=== PATIENT | female | born 1955 | race African-American/Black ===

== ENCOUNTER 2019-02-25 13:20 | Emergency (ER) | payer MEDICAID ==
[~2019-02-25] VITALS: Ht 167.6 cm; Wt 99.8 kg
[~2019-02-25 13:20] MED LIST: ATE50T PO; CALC0.25 PO; CHOL20007 PO; FERR-7 PO; FURO1TAB33 PO; HCTZ25T GT; HYDR-4188 PO; HYDR50TA15 PO; LAMO100T44 PO; LOSA25TA38 PO; MYCO500T PO; NORT25CA PO; ONDA-144 PO; PANT40TA2 PO; PHE100C PO; POTA10TA51 PO; TRAM50TA2 PO
[2019-02-25] MEDS ORDERED: SODIUM CHLORIDE 0.9% 500 ML IV ONE (13:36)
[2019-02-25 14:19] LABS: Urine Bacteria FEW /hpf (None Seen); Urine Blood Negative /uL (Negative); Urine WBC 3 /hpf (0 - 5)
[2019-02-25 14:27] LABS: Eosinophils # (auto) 0 uL; Monocytes # (auto) 0.6 uL
[2019-02-25 14:29] LABS: Basophils # (auto) 0 uL; Basophils % (auto) 0.9 % (0.0-2.0); Eosinophils % (auto) 0.4 % (0.0-7.0); Hemoglobin 11.5 g/dL (12.2-16.2); Lymphocytes # (auto) 1.5 uL; Lymphocytes % (auto) 32.6 % (10.0-50.0); Mean Corpuscular Hemoglobin 26.3 pg (28.0-32.0); Mean Corpuscular Volume 82.2 fL (80.0-100.0); Monocytes % (auto) 13.6 % (0.0-12.0); Neutrophils # (auto) 2.5 uL; Neutrophils % (auto) 52.5 % (37.0-80.0); Nucleated Red Blood Cells % 0.2 %; Platelet Count (auto) 258 10^3/uL (140-450); Red Blood Cells 4.38 10^6/uL (4.0-5.20); Red Cell Distribution Width 16.4 % (11.8-14.3); White Blood Cell 4.7 10^3/uL (4.4-10.8)
[2019-02-25] MEDS ORDERED: methylPREDNISolone SOD SUCC 125 MG/2 ML VL IV ONE (14:30)
[2019-02-25 14:48] LABS: Albumin 2.9 g/dL (3.4-5.0); Calcium 8.2 mg/dL (8.5-10.1); Potassium 3.7 mmol/L (3.5-5.1)
[2019-02-25 14:51] LABS: BUN/Creatinine Ratio 28.3; Bilirubin, Total 0.3 mg/dL (0.2-1.0); Total Protein 7.7 g/dL (6.4-8.2)
[2019-02-25 14:59] LABS: INR 1.11 (0.9-1.15); Partial Thromboplastin Time 27.9 sec (23.64-32.05)
[2019-02-25 19:38] VITALS: BP 132/61
== END 2019-02-25 15:46 | disposition short-term general hospital (02) ==
LOC: EDBD 13:20 → ER 13:20
DX: I13.2 Hypertensive heart and chronic kidney disease with heart failure and with stage 5 chronic kidney disease, or end stage renal disease (principal); N18.6 End stage renal disease; I50.9 Heart failure, unspecified; T42.0X5A Adverse effect of hydantoin derivatives, initial encounter; R41.82 Altered mental status, unspecified; I48.91 Unspecified atrial fibrillation; M19.90 Unspecified osteoarthritis, unspecified site; E89.0 Postprocedural hypothyroidism; Z86.73 Personal history of transient ischemic attack (TIA), and cerebral infarction without residual deficits; Z87.11 Personal history of peptic ulcer disease; Z90.49 Acquired absence of other specified parts of digestive tract; Z79.899 Other long term (current) drug therapy; Z88.6 Allergy status to analgesic agent; Y92.89 Other specified places as the place of occurrence of the external cause
CPT/HCPCS: 36415; 51702; 70450; 74176; 80053; 80185; 81001; 85025; 85610; 85730; 93005; 94761; 96361; 96374; 99291; J2930

== ENCOUNTER 2019-10-17 10:30 | Inpatient (IN) | payer MEDICAID, SELFPAY ==
[~2019-10-17] VITALS: Ht 170.2 cm; Wt 99.0 kg
[2019-10-17] MEDS ORDERED: SODIUM CHLORIDE 0.9% 1,000 ML IV ONE (10:52)
[2019-10-17 12:28] LABS: Eosinophils # (auto) 0 10 ^3/uL (0-0.8); Monocytes # (auto) 0.6 10 ^3/uL (0-1.3); Nucleated Red Blood Cells % 0.1 %
[2019-10-17 12:30] LABS: Basophils # (auto) 0 10 ^3/uL (0-0.2); Hematocrit 37.7 % (36.0-46.0); Lymphocytes # (auto) 0.6 10 ^3/uL (0.4-5.4); Lymphocytes % (auto) 4.7 % (10.0-50.0); Mean Corpuscular Hemoglobin 25.4 pg (28.0-32.0); Mean Corpuscular Hgb Conc. 31.7 g/dL (32.0-36.0); Monocytes % (auto) 4.9 % (0.0-12.0); Neutrophils # (auto) 11.3 10 ^3/uL (1.6-8.6); Neutrophils % (auto) 90.4 % (37.0-80.0); Red Blood Cells 4.71 10^6/uL (4.0-5.20); Red Cell Distribution Width 17.4 % (11.8-14.3); White Blood Cell 12.5 10^3/uL (4.4-10.8)
[2019-10-17 12:40] LABS: Urine Bacteria FEW /hpf (None Seen); Urine Blood 1+ /uL (Negative); Urine Budding Yeast OCCASIONAL /hpf (None Seen); Urine Specific Gravity 1.009 (1.001-1.035); Urine WBC 1 /hpf (0 - 5)
[2019-10-17 13:24] LABS: Platelet Count (auto) 140 10^3/uL (140-450)
[2019-10-17 14:34] LABS: Albumin 3.1 g/dL (3.4-5.0); Calcium 8.8 mg/dL (8.5-10.1); Potassium 4.5 mmol/L (3.5-5.1)
[2019-10-17 14:38] LABS: BUN/Creatinine Ratio 16.8; Bilirubin, Total 0.3 mg/dL (0.2-1.0); Total Protein 8.5 g/dL (6.4-8.2)
[2019-10-17] MEDS ORDERED: FUROSEMIDE 40 MG/4 ML VIAL IV ONE (14:45)
[2019-10-17] MEDS ORDERED: cefTRIAXone 1GM/50ML D5W 50 ML IV ONE (14:45)
[2019-10-17] MEDS ORDERED: AZITHROMYCIN 500MG/ 250ML 250 ML IV ONE (14:45)
[2019-10-17] MEDS ORDERED: ZINC SULFATE 220mg CAP or TAB PO ONE (15:15)
[2019-10-17] MEDS ORDERED: CHOLECALCIFEROL (VITD3) 1,000IU=25mCg TAB PO ONE (15:15)
[2019-10-17] MEDS ORDERED: ASCORBIC ACID 500 MG TAB PO ONE (15:15)
[2019-10-17] MEDS ORDERED: NITROGLYCERIN 0.4 MG SL TAB SL PRN (16:00)
[2019-10-17] MEDS ORDERED: MORPHINE SULF INJ 2 MG/ML SYRINGE 1ML IV PRN (16:00)
[2019-10-17] MEDS ORDERED: ACETAMINOPHEN 500 MG TAB PO PRN (16:00)
[2019-10-17] MEDS ORDERED: HYDROcodone-ACET 5/325MG TAB PO PRN (16:00)
[2019-10-17] MEDS ORDERED: LORazepam 2MG/ML-1ML VIAL IV PRN ×2 (16:15→21:00)
[2019-10-17] MEDS ORDERED: METOPROLOL TARTRATE 1MG/1ML-5ML VIAL IV ONE (16:15)
[2019-10-17 16:27] LABS: CRP High Sensitivity 0.35 mg/dL (< 0.3); Magnesium 3.2 mg/dL (1.6-2.6)
[2019-10-17] MEDS: BUMETANIDE 2.5mg/10ml (0.25 mg/ml) INJ IV SCH (17:54)
[2019-10-17] MEDS: MORPHINE SULF INJ 2 MG/ML SYRINGE 1ML IV PRN ×2 (17:54→22:26)
[2019-10-17] MEDS ORDERED: lamoTRIgine 100 MG TAB PO SCH ×2 (21:00→22:00)
[2019-10-17] MEDS: ONDANSETRON HCL 4 MG/2 ML VIAL IV PRN (22:25)
[2019-10-17] MEDS: PIPERACILLIN-TAZOB 2.25GM 50 ML IV SCH (22:25)
[2019-10-17] MEDS: hydrALAZINE HCL 25 MG TAB PO SCH (22:27)
[2019-10-17] MEDS: lamoTRIgine 100 MG TAB PO SCH (22:27)
[2019-10-17] MEDS: ALBUTEROL SULF HFA 90MCG INH 200DOSE IN SCH (22:45)
[2019-10-18 01:44] VITALS: BP 151/99
[2019-10-18] MEDS: MORPHINE SULF INJ 2 MG/ML SYRINGE 1ML IV PRN ×3 (03:51→16:55)
[2019-10-18] MEDS: BUMETANIDE 2.5mg/10ml (0.25 mg/ml) INJ IV SCH ×2 (06:11→18:00)
[2019-10-18 06:23] LABS: Eosinophils # (auto) 0.1 10 ^3/uL (0-0.8); Mean Corpuscular Volume 79.1 fL (80.0-100.0); Monocytes # (auto) 0.8 10 ^3/uL (0-1.3); Nucleated Red Blood Cells % 0.1 %
[2019-10-18 06:25] LABS: Basophils # (auto) 0 10 ^3/uL (0-0.2); Basophils % (auto) 0.3 % (0.0-2.0); Eosinophils % (auto) 1.2 % (0.0-7.0); Hematocrit 34.6 % (36.0-46.0); Lymphocytes # (auto) 0.7 10 ^3/uL (0.4-5.4); Lymphocytes % (auto) 6.5 % (10.0-50.0); Mean Corpuscular Hemoglobin 25.1 pg (28.0-32.0); Mean Corpuscular Hgb Conc. 31.8 g/dL (32.0-36.0); Monocytes % (auto) 7.5 % (0.0-12.0); Neutrophils # (auto) 8.5 10 ^3/uL (1.6-8.6); Neutrophils % (auto) 84.5 % (37.0-80.0); Platelet Count (auto) 185 10^3/uL (140-450); Red Blood Cells 4.37 10^6/uL (4.0-5.20); Red Cell Distribution Width 17.1 % (11.8-14.3); White Blood Cell 10.1 10^3/uL (4.4-10.8)
[2019-10-18 06:36] LABS: Albumin 2.8 g/dL (3.4-5.0); Calcium 8.4 mg/dL (8.5-10.1); Potassium 4.1 mmol/L (3.5-5.1)
[2019-10-18 06:41] LABS: BUN/Creatinine Ratio 16.8; Bilirubin, Total 0.6 mg/dL (0.2-1.0); Total Protein 7.6 g/dL (6.4-8.2)
[2019-10-18] MEDS: ALBUTEROL SULF HFA 90MCG INH 200DOSE IN SCH ×3 (08:00→20:25)
[2019-10-18] MEDS: lamoTRIgine 100 MG TAB PO SCH ×2 (09:15→21:15)
[2019-10-18] MEDS: PIPERACILLIN-TAZOB 2.25GM 50 ML IV SCH ×2 (10:00→21:46)
[2019-10-18] MEDS: CHOLECALCIFEROL (VITD3) 1,000IU=25mCg TAB PO SCH (10:00)
[2019-10-18] MEDS: ENOXAPARIN SOD 30 MG/0.3 ML SYRINGE SC SCH (10:00)
[2019-10-18] MEDS ORDERED: AZITHROMYCIN 500MG/ 250ML 250 ML IV SCH ×2 (10:00)
[2019-10-18] MEDS ORDERED: AZITHROMYCIN DIHYD 500 MG VIAL IV SCH (10:00)
[2019-10-18] MEDS: ZINC SULFATE 220mg CAP or TAB PO SCH (10:00)
[2019-10-18] MEDS: ASCORBIC ACID 500 MG TAB PO SCH (10:00)
[2019-10-18] MEDS: FAMOTIDINE 20 MG TAB PO SCH (10:00)
[2019-10-18] MEDS: hydrALAZINE HCL 25 MG TAB PO SCH ×2 (10:00→21:46)
[2019-10-18] MEDS: ATENOLOL 50 MG TAB PO SCH (10:00)
[2019-10-18] MEDS: ONDANSETRON HCL 4 MG/2 ML VIAL IV PRN ×2 (10:24→16:55)
--- NOTE | 2019-10-18 10:45 | NUR ---
1040 10/18/19 I faxed transfer order and Notice Regarding Post Stabilization to [facility]-document scanned into [employer]. I provided contact information for Dr. Jack.
--- NOTE | 2019-10-18 14:01 | NUR ---
1350 10/18/19 I called [facility] [phone] and spoke with Assembly Machine Tool Setter Reba regarding the transfer order for this patient. I spoke with [facility] in Infection Control, the COVID-19 test result is still pending. Per Assembly Machine Tool Setter Reba, they will not accept patient for transfer until result is back. Per Reba, inpatient authorization is extended until 10/19/19 1000-she will have it faxed over.
[2019-10-18 19:05] VITALS: BP 149/91
--- NOTE | 2019-10-18 19:05 | NUR ---
PT ARRIVED FROM ER PT BROUGHT TO COMPA UNIT ON STRETCHER WITH 8 L OXYMIZER APPLIED AND BELONGINGS IN TOW. PLACED PT IN ISOLATION ROOM FOR RULE OUT COVID. VITAL SIGNS STABLE. 02 SAT NOT READING CORRECTLY, WILL FOLLOW UP WITH RT. BEGAN ADMISSION ASSESSMENT AND PACKET PER PROTOCOL.
[2019-10-18 20:00] VITALS: BP 146/83
--- NOTE | 2019-10-18 20:45 | NUR ---
RT AT BEDSIDE TO TROUBLE SHOOT PULSE OX. WAVEFORM LOOKS APPROPRIATE, HOWEVER NUMBERS HAVE BEEN RUNNING IN THE LOW 80'S. PT IS ASYMPTOMATIC OF RESPIRATORY DISTRESS RT RESOLVED EQUIPMENT MALFUNCTION. PT REMAINS ON 8L OXYMIZER WITH NO S/S OF DISTRESS NOTED.
[2019-10-18 21:00] VITALS: BP 154/77
--- NOTE | 2019-10-18 21:18 | NUR ---
MORPHINE ADMIN GAVE MORPHINE PER MD ORDER FOR PAIN 8/ CHRONIC IN RIGHT SHOULDER THAT RADIATES TO BACK. DOCUMENTATION WASN'T SAVED IN EMAR. WILL REASSESS PAIN.
[2019-10-18 22:00] VITALS: BP 142/75
[2019-10-18 23:00] VITALS: BP 139/71
[2019-10-18] MEDS ORDERED: BIOT10004 PO (23:47)
[2019-10-18] MEDS ORDERED: AMLO5TAB15 PO (23:47)
[2019-10-18] MEDS ORDERED: ROPI0.5T18 PO (23:47)
[2019-10-18] MEDS ORDERED: SODI650T PO (23:47)
[2019-10-18] MEDS ORDERED: BACL10TA PO (23:47)
[2019-10-18] MEDS ORDERED: HYDR200T36 PO (23:47)
[2019-10-18] MEDS ORDERED: DOCU100T15 PO (23:47)
[2019-10-19] VITALS (11 sets, daily range): BP systolic 109–152; BP diastolic 50–85
--- NOTE | 2019-10-19 00:15 | NUR ---
PAIN REASSESSMENT CHRONIC PAIN STILL 8/10 IN RIGHT SHOULDER. DID A POSITION CHANGE AND OFFLOADED PRESSURE WITH PILLOWS. PT REQUESTING MORPHINE. WILL ADMIN WHEN DUE.
--- NOTE | 2019-10-19 00:45 | NUR ---
PT TEMPERATURE TEMP READING AT 101.5 ORALLY. REMOVED BLANKETS AND PLACED FAN ON PT. WILL REASSESS.
--- NOTE | 2019-10-19 01:30 | NUR ---
TEMP REASSESSMENT PT TEMP ELEVATED AT 100.8 ORALLY. TYLENOL GIVEN PER MD ORDER. WILL CONTINUE TO MONITOR.
[2019-10-19] MEDS: MORPHINE SULF INJ 2 MG/ML SYRINGE 1ML IV PRN ×5 (01:45→21:13)
[2019-10-19] MEDS: ALBUTEROL SULF HFA 90MCG INH 200DOSE IN SCH ×3 (06:10→21:38)
--- NOTE | 2019-10-19 06:10 | NUR ---
Respiratory note: BREATHING TX ADMINISTERED BY NOC SHIFT STU DANG. WILL RETURN FOR NEXT SCHEDULED TX.
[2019-10-19] MEDS: BUMETANIDE 2.5mg/10ml (0.25 mg/ml) INJ IV SCH ×3 (06:15→18:46)
[2019-10-19 07:04] LABS: Eosinophils # (auto) 0.3 10 ^3/uL (0-0.8); Lymphocytes # (auto) 0.9 10 ^3/uL (0.4-5.4); White Blood Cell 10.6 10^3/uL (4.4-10.8)
--- NOTE | 2019-10-19 07:05 | NUR ---
COVID RESULTS BOARDER MACHINE CALLED TO UPDATE ON COVID RESULTS. PT IS NEGATIVE.
[2019-10-19 07:06] LABS: Basophils # (auto) 0 10 ^3/uL (0-0.2); Basophils % (auto) 0.3 % (0.0-2.0); Eosinophils % (auto) 2.4 % (0.0-7.0); Lymphocytes % (auto) 8.4 % (10.0-50.0); Mean Corpuscular Hemoglobin 25.6 pg (28.0-32.0); Mean Corpuscular Hgb Conc. 32.3 g/dL (32.0-36.0); Mean Corpuscular Volume 79.2 fL (80.0-100.0); Monocytes # (auto) 1.1 10 ^3/uL (0-1.3); Monocytes % (auto) 10.2 % (0.0-12.0); Neutrophils # (auto) 8.4 10 ^3/uL (1.6-8.6); Neutrophils % (auto) 78.7 % (37.0-80.0); Platelet Count (auto) 160 10^3/uL (140-450); Red Blood Cells 3.91 10^6/uL (4.0-5.20); Red Cell Distribution Width 16.6 % (11.8-14.3)
[2019-10-19 07:23] LABS: Calcium 8.5 mg/dL (8.5-10.1)
[2019-10-19] MEDS: CHOLECALCIFEROL (VITD3) 1,000IU=25mCg TAB PO SCH (10:00)
[2019-10-19] MEDS: ZINC SULFATE 220mg CAP or TAB PO SCH ×2 (10:00→11:36)
[2019-10-19] MEDS: PIPERACILLIN-TAZOB 2.25GM 50 ML IV SCH ×3 (10:28→21:12)
[2019-10-19] MEDS: FAMOTIDINE 20 MG TAB PO SCH (10:29)
[2019-10-19] MEDS ORDERED: AZITHROMYCIN 250 MG TAB PO ONE (10:30)
[2019-10-19] MEDS: hydrALAZINE HCL 25 MG TAB PO SCH ×2 (10:31→21:11)
[2019-10-19] MEDS: ASCORBIC ACID 500 MG TAB PO SCH (10:32)
[2019-10-19] MEDS: ENOXAPARIN SOD 30 MG/0.3 ML SYRINGE SC SCH (10:32)
[2019-10-19] MEDS: ATENOLOL 50 MG TAB PO SCH (10:55)
[2019-10-19] MEDS: lamoTRIgine 100 MG TAB PO SCH ×2 (10:56→21:12)
--- NOTE | 2019-10-19 12:00 | NUR ---
PT ARRIVED FROM COMPA VIA A WHEELCHAIR, ALERT ORIENTED X4, OXYMIZER 8L, NO DISTRESS NOTED, ABLE TO VERBALIS HER NEEDS, SELF REPOSITION, TO ROOM 222A, PAIN 0/10, CALL LIGHT WITHIN REACH
--- NOTE | 2019-10-19 13:25 | NUR ---
TRANSFER PT TO ROOM 207, PER DR GARCIA REQUEST , CHARGE NURSE AWARE
--- NOTE | 2019-10-19 14:06 | NUR ---
COMPA pt transferred to floor NEETA KWONG transferred to Telemetry via bed on patient monitor and portable 02. All patient medications and personal belongings transferred with patient to receiving floor. Patient care transferred to room 233. Patient show no signs of distress or sob. POC explained and patient verbalized understanding. Will cont to monitor.
--- NOTE | 2019-10-19 14:07 | NUR ---
TRANSFER PT TO ROOM 233, DUE TO CHEST CT RESULTS, PER DR GARCIA PT NEED TO BE RE TESTED, REPORT GIVEN TO MARION PERAZA, CONTINUE MONITORING
--- NOTE | 2019-10-19 15:30 | NUR ---
Respiratory note: SPOKE WITH STU SCHULTZ. MDI BREATHING TX TO BE ADMINISTERED BY RN. WILL CONTINUE ORDERED.
--- NOTE | 2019-10-19 16:19 | NUR ---
Nutrition Assessment Notes Please refer to link for full assessment notes. Est energy needs: 3918-3926 kcals (17-20 kcal/kgBW) Est protein needs: 57-71 gms/day (0.8-1.0 gm/kgAdjBW) Will continue to monitor and reassess prn. Addendum: 10/19/19 at [address] Amended: Links added.
--- NOTE | 2019-10-19 19:30 | NUR ---
Endorsed care to night RN. Patient resting in bed, no distress, sob, or pain noted at this time.
--- NOTE | 2019-10-19 20:00 | NUR ---
OPENING SHIFT NOTE: ASSUMED CARE OF PATIENT, A&O X4, AWAKE AND ALERT, NO S/S OF SOB OR DISTRESS, RESPIRATIONS EVEN AND UNLABORED, PATIENT DENIES PAIN. BED IS LOW, LOCKED, TWO SIDE RAILS RAISED, AND CALL DAVE IS WITHIN REACH. INSTRUCTED ON POC AND TO CALL FOR ASSISTANCE, PATIENT VERBALIZED UNDERSTANDING, WILL CONTINUE TO MONITOR Q 1HR AND PRN.
--- NOTE | 2019-10-19 21:38 | NUR ---
Respiratory note: MDI TX ALREADY GIVEN.
[2019-10-20] VITALS (7 sets, daily range): BP systolic 141–159; BP diastolic 75–92
[2019-10-20] MEDS: PIPERACILLIN-TAZOB 2.25GM 50 ML IV SCH ×2 (04:16→09:03)
[2019-10-20] MEDS: BUMETANIDE 2.5mg/10ml (0.25 mg/ml) INJ IV SCH ×2 (04:50→18:43)
[2019-10-20] MEDS: MORPHINE SULF INJ 2 MG/ML SYRINGE 1ML IV PRN ×4 (05:27→20:08)
[2019-10-20] MEDS: ALBUTEROL SULF HFA 90MCG INH 200DOSE IN SCH ×3 (06:00→21:46)
--- NOTE | 2019-10-20 07:33 | NUR ---
MDI ADMINISTERED BY RN. PT ASSESSED AND IS ON 2LNC, SPO2 99%, HR 79, RR 18. PT DENIES SOB. RESPIRATIONS ARE EVEN AND UNLABORED.
[2019-10-20] MEDS: CHOLECALCIFEROL (VITD3) 1,000IU=25mCg TAB PO SCH (09:04)
[2019-10-20] MEDS: ASCORBIC ACID 500 MG TAB PO SCH (09:04)
[2019-10-20] MEDS: ZINC SULFATE 220mg CAP or TAB PO SCH (09:05)
[2019-10-20] MEDS: FAMOTIDINE 20 MG TAB PO SCH (09:05)
[2019-10-20] MEDS: lamoTRIgine 100 MG TAB PO SCH ×2 (09:05→21:06)
[2019-10-20] MEDS: AZITHROMYCIN 250 MG TAB PO SCH (09:06)
[2019-10-20] MEDS: ENOXAPARIN SOD 30 MG/0.3 ML SYRINGE SC SCH (09:06)
[2019-10-20 09:50] LABS: Basophils # (auto) 0 10 ^3/uL (0-0.2); Eosinophils # (auto) 0.3 10 ^3/uL (0-0.8); Hemoglobin 10.6 g/dL (12.2-16.2); Lymphocytes # (auto) 0.5 10 ^3/uL (0.4-5.4); Mean Corpuscular Volume 78.4 fL (80.0-100.0); Monocytes # (auto) 0.7 10 ^3/uL (0-1.3); Neutrophils # (auto) 6.9 10 ^3/uL (1.6-8.6); Neutrophils % (auto) 82.2 % (37.0-80.0); Red Cell Distribution Width 16.7 % (11.8-14.3); White Blood Cell 8.4 10^3/uL (4.4-10.8)
[2019-10-20 09:52] LABS: Basophils % (auto) 0.5 % (0.0-2.0); Eosinophils % (auto) 3.7 % (0.0-7.0); Hematocrit 32.6 % (36.0-46.0); Lymphocytes % (auto) 5.6 % (10.0-50.0); Mean Corpuscular Hemoglobin 25.4 pg (28.0-32.0); Mean Corpuscular Hgb Conc. 32.5 g/dL (32.0-36.0); Platelet Count (auto) 173 10^3/uL (140-450); Red Blood Cells 4.17 10^6/uL (4.0-5.20)
[2019-10-20 10:14] LABS: Albumin 2.8 g/dL (3.4-5.0); Calcium 8.5 mg/dL (8.5-10.1)
[2019-10-20] MEDS: ATENOLOL 50 MG TAB PO SCH (10:19)
[2019-10-20] MEDS: hydrALAZINE HCL 25 MG TAB PO SCH ×2 (10:19→21:46)
[2019-10-20 10:22] LABS: BUN/Creatinine Ratio 16.9; Bilirubin, Total 0.7 mg/dL (0.2-1.0); Total Protein 7.8 g/dL (6.4-8.2)
--- NOTE | 2019-10-20 14:42 | NUR ---
PAGED MD Ashwin GARCIA RE: PT COMPLAINTS OF DIARRHEA. PER PT IS TO BE RULED OUT FOR C-DIFF
[2019-10-20] MEDS ORDERED: cefTRIAXone 1GM/50ML D5W 50 ML IV ONE (16:00)
--- NOTE | 2019-10-20 19:10 | NUR ---
OPENING SHIFT NOTE: ASSUMED CARE OF PATIENT, AWAKE, ALERT AND ORIENTED X4, NO S/S OF DISTRESS, SOB, RESPIRATIONS ARE EVEN AND UNLABORED, PATIENT CONNECTED TO CONTINUOUS PULSE OXIMETER AND SATURATING AT 94% ON ROOM AIR. COMPLAINS OF LEFT SHOULDER PAIN 02/19, WILL MEDICATE FOR PAIN PRN. BED IS LOW, LOCKED, TWO SIDE RAILS RAISED, AND CALL DAVE IS WITHIN REACH. INSTRUCTED ON POC AND TO CALL FOR ASSISTANCE, ALSO EDUCATED PATIENT ON IMPORTANCE OF MEASURING URINE OUTPUT AND COLLECTING STOOL SAMPLE, PATIENT VERBALIZED UNDERSTANDING. WILL CONTINUE TO MONITOR Q 1HR AND PRN.
--- NOTE | 2019-10-20 21:46 | NUR ---
RT NOTE MDI GIVEN BY STU LUNDY WITHOUT INCIDENT. RT MADE SURE RN WAS FAMILIAR WITH THE PROPER ADMINISTRATION OF MDI.
--- NOTE | 2019-10-21 00:03 | NUR ---
STOOL SAMPLE SENT TO LAB.
[2019-10-21] MEDS: MORPHINE SULF INJ 2 MG/ML SYRINGE 1ML IV PRN ×3 (00:37→17:17)
[2019-10-21 05:30] VITALS: BP 151/89
[2019-10-21] MEDS: ALBUTEROL SULF HFA 90MCG INH 200DOSE IN SCH ×3 (06:00→22:06)
[2019-10-21] MEDS: BUMETANIDE 2.5mg/10ml (0.25 mg/ml) INJ IV SCH ×2 (06:16→17:16)
[2019-10-21 06:55] LABS: Potassium 3.3 mmol/L (3.5-5.1)
[2019-10-21 07:00] LABS: Calcium 8.4 mg/dL (8.5-10.1)
[2019-10-21 08:00] VITALS: BP 136/69
[2019-10-21] MEDS: lamoTRIgine 100 MG TAB PO SCH ×2 (10:18→22:05)
[2019-10-21] MEDS: cefTRIAXone 1GM/50ML D5W 50 ML IV SCH (10:18)
[2019-10-21] MEDS: FAMOTIDINE 20 MG TAB PO SCH (10:18)
[2019-10-21] MEDS: ZINC SULFATE 220mg CAP or TAB PO SCH (10:18)
[2019-10-21] MEDS: AZITHROMYCIN 250 MG TAB PO SCH (10:19)
[2019-10-21] MEDS: ASCORBIC ACID 500 MG TAB PO SCH (10:19)
[2019-10-21] MEDS: CHOLECALCIFEROL (VITD3) 1,000IU=25mCg TAB PO SCH (10:19)
[2019-10-21] MEDS: ATENOLOL 50 MG TAB PO SCH (10:19)
[2019-10-21] MEDS: ENOXAPARIN SOD 30 MG/0.3 ML SYRINGE SC SCH (10:20)
[2019-10-21] MEDS: hydrALAZINE HCL 25 MG TAB PO SCH ×2 (10:20→22:06)
[2019-10-21 12:00] VITALS: BP 139/78
--- NOTE | 2019-10-21 12:45 | NUR ---
MD ROUNDING MD Ashwin GARCIA AT BEDSIDE. ALL QUESTIONS AND CONCERNS ADDRESSED AT THIS TIME
[2019-10-21] MEDS ORDERED: POTASSIUM CHL 20 Meq TABLET PO ONE (16:00)
--- NOTE | 2019-10-21 16:12 | NUR ---
1400 MED NEB ADMINISTERED BY RN
[2019-10-21 16:30] VITALS: BP 141/89
--- NOTE | 2019-10-21 19:10 | NUR ---
Opening Shift Note Assumed care of patient, awake, alert and oriented x4, on room air, even and unlabored respirations, no S/S of distress/SOB or pain. Patient able to turn independently, bed in lowest locked position, side rails up x2, and call light within reach. Instructed on POC and to call for assist PRN, will continue to monitor for changes Q1hr and PRN.
[2019-10-21 22:00] VITALS: BP 149/76
[2019-10-22] MEDS: MORPHINE SULF INJ 2 MG/ML SYRINGE 1ML IV PRN ×2 (04:44→10:57)
[2019-10-22] MEDS: ONDANSETRON HCL 4 MG/2 ML VIAL IV PRN (04:45)
[2019-10-22] MEDS: ALBUTEROL SULF HFA 90MCG INH 200DOSE IN SCH ×2 (06:00→06:58)
[2019-10-22 06:21] LABS: Potassium 3.6 mmol/L (3.5-5.1)
[2019-10-22 06:44] LABS: Albumin 2.8 g/dL (3.4-5.0); BUN/Creatinine Ratio 16.1; Bilirubin, Total 0.6 mg/dL (0.2-1.0); Calcium 8.3 mg/dL (8.5-10.1); Phosphorus 3.3 mg/dL (2.5-4.90); Total Protein 7.6 g/dL (6.4-8.2)
[2019-10-22] MEDS: BUMETANIDE 2.5mg/10ml (0.25 mg/ml) INJ IV SCH (06:55)
--- NOTE | 2019-10-22 06:58 | NUR ---
Respiratory note: HR 73, RR 14, SPO2 98% ON RA. BS CLEAR AND DIMINISHED.ALBUTEROL INHALER ADMINISTERED BY RT. NO SIGNS OR SYMPTOMS OF RESPIRATORY DISTRESS NOTED AT THIS TIME.
--- NOTE | 2019-10-22 08:30 | NUR ---
OPENING SHIFT NOTE: PATIENT UP OUT OF BED WALKING IN ROOM. PATIENT REPORTS NO S/S OF SHORTNESS OF BREATH OR DISTRESS. PATIENT INSTRUCTED TO AMBULATE IN ROOM. PATIENT ON ROOM AIR WITH OXYGEN SATURATIONS OF 98-99%. PATIENT UPDATED ON POC. PATIENT UPDATED ON POC. BED IN LOWEST LOCKED POSITION WITH CALL LIGHT WITHIN REACH.
--- NOTE | 2019-10-22 10:05 | NUR ---
Keshawn GARCIA AT BEDSIDE.
[2019-10-22] MEDS: cefTRIAXone 1GM/50ML D5W 50 ML IV SCH (10:54)
[2019-10-22] MEDS: lamoTRIgine 100 MG TAB PO SCH (10:55)
[2019-10-22] MEDS: FAMOTIDINE 20 MG TAB PO SCH (10:55)
[2019-10-22] MEDS: ZINC SULFATE 220mg CAP or TAB PO SCH (10:55)
[2019-10-22] MEDS: hydrALAZINE HCL 25 MG TAB PO SCH (10:55)
[2019-10-22] MEDS: ATENOLOL 50 MG TAB PO SCH (10:56)
[2019-10-22] MEDS: AZITHROMYCIN 250 MG TAB PO SCH (10:56)
[2019-10-22] MEDS: ASCORBIC ACID 500 MG TAB PO SCH (10:56)
[2019-10-22] MEDS: ENOXAPARIN SOD 30 MG/0.3 ML SYRINGE SC SCH (10:56)
[2019-10-22] MEDS ORDERED: ERGOCALCIFEROL 50,000 UNIT(1.25MG) CAP PO SCH (12:00)
--- NOTE | 2019-10-22 15:00 | NUR ---
Discharge instructions given as ordered. Encourage to follow up with PMD as instructed. All questions and concerns addressed. Patient verbalized understanding. Medication reconciliation form completed and copy given to patient. Central line removed with catheter intact, pressure dressing applied. Telemetry unit returned to ICU. Patient taken to vehicle via wheelchair with all personal belongings, accompanied by staff and family member. No distress noted at time of departure.
== END 2019-10-22 15:00 | disposition home or self-care (01) | DRG 720 ==
LOC: EDBD 10:30 → ER 10:30 → TELE 10:31 → DOU IN ICU 10-18 19:20 → TELE-CENTR 10-19 11:45 → TELE-EAST 10-19 13:44
PROVIDERS: ADMIT Nurse Practitioner Acute Care; ATTEND Internal Medicine
PROC: 02HV33Z Insertion of Infusion Device into Superior Vena Cava, Percutaneous Approach (ICD-10-PCS; principal; 2019-10-17)
DX: A41.9 Sepsis, unspecified organism (principal); J96.01 Acute respiratory failure with hypoxia; I13.2 Hypertensive heart and chronic kidney disease with heart failure and with stage 5 chronic kidney disease, or end stage renal disease; N17.9 Acute kidney failure, unspecified; E87.2 Acidosis; J18.9 Pneumonia, unspecified organism; I27.20 Pulmonary hypertension, unspecified; M32.9 Systemic lupus erythematosus, unspecified; E44.1 Mild protein-calorie malnutrition; E88.09 Other disorders of plasma-protein metabolism, not elsewhere classified; N18.5 Chronic kidney disease, stage 5; I50.43 Acute on chronic combined systolic (congestive) and diastolic (congestive) heart failure; G40.409 Other generalized epilepsy and epileptic syndromes, not intractable, without status epilepticus; D63.8 Anemia in other chronic diseases classified elsewhere; B34.9 Viral infection, unspecified; M19.90 Unspecified osteoarthritis, unspecified site; Z90.49 Acquired absence of other specified parts of digestive tract; Z68.34 Body mass index [BMI] 34.0-34.9, adult; Z03.818 Encounter for observation for suspected exposure to other biological agents ruled out
CPT/HCPCS: 36415; 36556; 71045; 71250; 76775; 80048; 80053; 81001; 82306; 82728; 83605; 83615; 83735; 83880; 83970; 84100; 84443; 84484; 85025; 85379; 86141; 87040; 87070; 87077; 87081; 87186; 87493; 87804; 87880; 93005; 94640; 96360; 96361; G0378; J0696; J2405; J2543

== ENCOUNTER 2020-01-22 13:31 | Inpatient (IN) | payer MEDICAID, SELFPAY ==
[~2020-01-22] VITALS: Ht 162.6 cm; Wt 99.3 kg
[~2020-01-22 13:31] MED LIST changes: +AMLO5TAB15 PO; +BACL10TA PO; +BIOT10004 PO; +DOCU100T15 PO; +HYDR200T36 PO; +ROPI0.5T18 PO; +SODI650T PO
[2020-01-22] MEDS ORDERED: SODIUM CHLORIDE 0.9% 500 ML IVB ONE (14:28)
[2020-01-22 15:15] LABS: Basophils # (auto) 0 10 ^3/uL (0-0.2); Basophils % (auto) 0.3 % (0.0-2.0); Eosinophils # (auto) 0.1 10 ^3/uL (0-0.8); Eosinophils % (auto) 0.9 % (0.0-7.0); Hematocrit 33.3 % (36.0-46.0); Hemoglobin 10.5 g/dL (12.2-16.2); Lymphocytes # (auto) 1.4 10 ^3/uL (0.4-5.4); Lymphocytes % (auto) 21.6 % (10.0-50.0); Mean Corpuscular Hemoglobin 27.1 pg (28.0-32.0); Mean Corpuscular Hgb Conc. 31.5 g/dL (32.0-36.0); Mean Corpuscular Volume 86.1 fL (80.0-100.0); Monocytes # (auto) 0.5 10 ^3/uL (0-1.3); Neutrophils # (auto) 4.4 10 ^3/uL (1.6-8.6); Neutrophils % (auto) 69.2 % (37.0-80.0); Platelet Count (auto) 230 10^3/uL (140-450); Red Blood Cells 3.87 10^6/uL (4.0-5.20); Red Cell Distribution Width 17.3 % (11.8-14.3); White Blood Cell 6.4 10^3/uL (4.4-10.8)
[2020-01-22 15:33] LABS: Alanine Aminotransferase 24 U/L (13-56); Albumin 2.9 g/dL (3.4-5.0); Anion Gap 9 (5-15); Aspartate Aminotransferase 18 U/L (15-37); BUN/Creatinine Ratio 5.9; Blood Alcohol < 3.0 mg/dL (0-5); Blood Urea Nitrogen 50 mg/dL (7-18); Calcium 8.5 mg/dL (8.5-10.1); Carbon Dioxide 28 mmol/L (21-32); Chloride 102 mmol/L (98-107); GFR African American 6 mL/min; GFR Non-African American 5 mL/min; Glucose 91 mg/dL (74-106); Potassium 4.5 mmol/L (3.5-5.1); Sodium 139 mmol/L (136-145)
[2020-01-22 15:41] LABS: Alkaline Phosphatase 109 U/L (45-117); Bilirubin, Total 0.3 mg/dL (0.2-1.0); Total Protein 7.6 g/dL (6.4-8.2)
[2020-01-22] MEDS ORDERED: methylPREDNISolone SOD SUCC 125 MG/2 ML VL IV ONE (16:30)
[2020-01-22 16:54] LABS: CRP High Sensitivity 0.74 mg/dL (< 0.3)
[2020-01-22] MEDS ORDERED: TEMAZEPAM 15 MG CAP PO PRN (19:45)
[2020-01-22] MEDS ORDERED: NITROGLYCERIN 0.4 MG SL TAB SL PRN (19:45)
[2020-01-22] MEDS ORDERED: traMADol HCL 50 MG TAB PO PRN (19:45)
[2020-01-22] MEDS ORDERED: ACETAMINOPHEN 500 MG TAB PO PRN (19:45)
[2020-01-22] MEDS ORDERED: ENOXAPARIN SOD 100 MG/1 ML SYRINGE SC ONE (19:45)
[2020-01-22] MEDS ORDERED: LACTULOSE 20Gm/30ML SOLN PO PRN (19:45)
[2020-01-22] MEDS ORDERED: cefTRIAXone 1GM/50ML D5W 50 ML IV ONE (19:45)
[2020-01-22] MEDS ORDERED: MORPHINE SULF INJ 2 MG/ML SYRINGE 1ML IV PRN ×2 (19:45)
[2020-01-22] MEDS ORDERED: LABETALOL HCL 5 MG/ML ML 20ML VIAL IV PRN (19:45)
[2020-01-22] MEDS ORDERED: ONDANSETRON HCL 4 MG/2 ML VIAL IV PRN (19:45)
[2020-01-22] MEDS ORDERED: FUROSEMIDE 40 MG/4 ML VIAL IV ONE (20:00)
[2020-01-22] MEDS ORDERED: DOCUSATE SOD 100 MG CAP PO PRN (20:00)
[2020-01-22] MEDS ORDERED: PHENYTOIN SODIUM 100 MG CAP PO SCH (22:00)
[2020-01-22] MEDS ORDERED: ALBUTEROL SULF HFA 90MCG INH 200DOSE IN SCH (22:00)
[2020-01-22] MEDS: SODIUM BICARBONATE 650 MG TAB PO SCH (23:38)
[2020-01-22 23:39] LABS: Urine Bacteria FEW /hpf (None Seen); Urine Blood Negative /uL (Negative); Urine Specific Gravity 1.012 (1.001-1.035); Urine WBC 4 /hpf (0 - 5)
[2020-01-22] MEDS: MYCOPHENOLATE 500 MG TAB PO SCH (23:39)
[2020-01-22] MEDS: hydrALAZINE HCL 25 MG TAB PO SCH (23:39)
[2020-01-22] MEDS: lamoTRIgine 100 MG TAB PO SCH (23:40)
[2020-01-22] MEDS: amLODIPine BESYLATE 5 MG TAB PO SCH (23:40)
[2020-01-22] MEDS: FAMOTIDINE 20 MG TAB PO SCH (23:40)
[2020-01-22] MEDS: PANTOPRAZOLE 40 MG TAB PO SCH (23:40)
[2020-01-22] MEDS: ATENOLOL 50 MG TAB PO SCH (23:41)
[2020-01-22] MEDS: DOXYCYCLINE 100 MG TAB/CAP PO SCH (23:41)
[2020-01-22 23:49] LABS: Alcohol, Urine < 3.0 mg/dL (0-10); Amphetamine Screen, Urine NEGATIVE (NEGATIVE); Barbiturate Scree,Urine NEGATIVE (NEGATIVE); Benzodiazephine Screen, Urine NEGATIVE (NEGATIVE); Cannabinoid Screen, Urine NEGATIVE (NEGATIVE); Cocaine Screen, Urine NEGATIVE (NEGATIVE); Opiate Scree,Urine POSITIVE (NEGATIVE); Phencyclidine Screen, Urine NEGATIVE (NEGATIVE)
--- NOTE | 2020-01-23 03:30 | NUR ---
Telemetry admit from ER ELENITANEETA admitted to Telemetry unit after SBAR received. Patient oriented to AMANDA FAJARDO, RN primary RN, unit, room, bed, and unit policies regarding patient care and visiting hours. Patient now on continuous telemetry monitoring, tele box # 72 and telemetry reading on arrival to unit is sr 61 npm. Patient weighed by bedscale and encouraged to call if they need something. All questions and concerns addressed, patient verbalized understanding. fall precautions in place.seizure precautions in place. call light within reach
[2020-01-23 03:40] VITALS: BP 124/83
--- NOTE | 2020-01-23 04:01 | NUR ---
patient is confused. called contact available on patient for admission questions, phone number in chart [phone] dorothy (), no answer.
--- NOTE | 2020-01-23 04:03 | NUR ---
unable to obtain list of home medications patient is confused. will endorse care to dayshift rn
--- NOTE | 2020-01-23 04:18 | NUR ---
admission questions answered per medical record history patient is confused.
--- NOTE | 2020-01-23 04:20 | NUR ---
patient reports a headache 02/19. informed patient pain medication is available and if she would like her tylenol. patient refused to answer after multiple attempts. informed patient pain medication is available and to call if she would like pain medication. patient stated " when am i going home" updated patient on poc patient stated " stupid" informed patient not to use that language. will continue to monitor. fall and seizure precautions in place. call light within reach side rails up and bed in low position.
--- NOTE | 2020-01-23 06:23 | NUR ---
[employer]AVA DEVELOPMENT TEAM LEAD UNABLE TO DRAW LAB. PER LAB THEY WILL RETURN 0900 TO ATTEMPT LAB DRAW AGAIN.
--- NOTE | 2020-01-23 07:23 | NUR ---
report given to dayshift rn patient is awake and alert denies sob distress or pain. fall and seizure precautions in place. endorse care to dayshift rn for labs. and home medications
--- NOTE | 2020-01-23 07:30 | NUR ---
RECEIVED REPORT AND CONTINUATION OF CARE,PATIENT AWAKE,ALERT, ORIENTED TO SELF,AND PLACE, STATED SHES AT [facility],PATIENT ASKED WHY SHES HERE STATED "SOMEONE IS TALKING TO ME,I HEAR THEIR VOICE" PATIENT RE ORIENTED,CALL LIGHT WITHIN REACH PATIENT INSTRUCTED,REMINDED TO CALL FOR ASSISTANCE ,SIDE RAILS UP X 2 BED ALARM ON,WILL CHECK PATIENT 1 HOUR AND NEEDED.
[2020-01-23 08:00] VITALS: BP 148/94
--- NOTE | 2020-01-23 08:29 | NUR ---
PATIENT REQUESTED TO TALK TO ,CALLED CASSIUS ( ) THEN CONNECTED TO PATIENT PHONE
[2020-01-23 08:50] VITALS: BP 148/94
[2020-01-23] MEDS ORDERED: cefTRIAXone 1GM/50ML D5W 50 ML IV SCH (09:00)
[2020-01-23] MEDS ORDERED: CHOLECALCIFEROL (VITD3) 1,000UNIT=25mCg TAB PO SCH (10:00)
[2020-01-23] MEDS ORDERED: hydrOXYchloroQUINE SULFATE 200 MG TAB PO SCH (10:00)
[2020-01-23] MEDS ORDERED: LOSARTAN POTASSIUM 25 MG TAB PO SCH (10:00)
[2020-01-23] MEDS ORDERED: FERROUS SULFATE 325 MG TAB PO SCH (10:00)
[2020-01-23] MEDS ORDERED: ZINC SULFATE 220mg CAP or TAB PO SCH (10:00)
[2020-01-23] MEDS ORDERED: ASCORBIC ACID 1,000 MG TAB PO SCH (10:00)
[2020-01-23] MEDS ORDERED: CALCITRIOL 0.25 MCG CAP PO SCH (10:00)
[2020-01-23] MEDS ORDERED: ASPirin 81 mg TAB PO SCH (10:00)
--- NOTE | 2020-01-23 10:00 | NUR ---
A.M. MEDICATION HOLD AT THIS TIME,PATIENT SCHEDULED FOR HEMODIALYSIS
[2020-01-23] MEDS ORDERED: SODIUM CHL 0.9% 1000 ML BAG XX ONE (10:45)
[2020-01-23 10:47] LABS: Basophils # (auto) 0.1 10 ^3/uL (0-0.2); Basophils % (auto) 1.3 % (0.0-2.0); Eosinophils # (auto) 0 10 ^3/uL (0-0.8); Eosinophils % (auto) 0.1 % (0.0-7.0); Hematocrit 39.8 % (36.0-46.0); Hemoglobin 12.5 g/dL (12.2-16.2); Lymphocytes # (auto) 1.5 10 ^3/uL (0.4-5.4); Lymphocytes % (auto) 20.6 % (10.0-50.0); Mean Corpuscular Hemoglobin 26.8 pg (28.0-32.0); Mean Corpuscular Hgb Conc. 31.5 g/dL (32.0-36.0); Monocytes # (auto) 0.5 10 ^3/uL (0-1.3); Monocytes % (auto) 6.3 % (0.0-12.0); Neutrophils # (auto) 5.2 10 ^3/uL (1.6-8.6); Neutrophils % (auto) 71.7 % (37.0-80.0); Nucleated Red Blood Cells % 0.2 %; Platelet Count (auto) 246 10^3/uL (140-450); Red Blood Cells 4.68 10^6/uL (4.0-5.20); Red Cell Distribution Width 17.9 % (11.8-14.3); White Blood Cell 7.2 10^3/uL (4.4-10.8)
[2020-01-23 10:49] LABS: Albumin 3.2 g/dL (3.4-5.0); Calcium 8.9 mg/dL (8.5-10.1); Potassium 4.9 mmol/L (3.5-5.1)
[2020-01-23 10:53] LABS: BUN/Creatinine Ratio 6.4; Bilirubin, Total 0.3 mg/dL (0.2-1.0); Total Protein 8.7 g/dL (6.4-8.2)
--- NOTE | 2020-01-23 11:00 | NUR ---
METAL FABRICATOR AT BED SIDE FOR HEMODIALYSIS TREATMENT
[2020-01-23 13:00] VITALS: BP 151/64
--- NOTE | 2020-01-23 13:48 | NUR ---
HEMODIALYSIS IN PROGRESS TOLERATING TREATMENT
--- NOTE | 2020-01-23 14:30 | NUR ---
Hemodialysis ended,tolerated well removed 3 liters per cook house supervisor,bp 131/74
[2020-01-23] MEDS: SODIUM BICARBONATE 650 MG TAB PO SCH (15:13)
[2020-01-23] MEDS: DOXYCYCLINE 100 MG TAB/CAP PO SCH (15:14)
[2020-01-23] MEDS: PANTOPRAZOLE 40 MG TAB PO SCH (15:14)
[2020-01-23] MEDS: FAMOTIDINE 20 MG TAB PO SCH (15:14)
[2020-01-23] MEDS: lamoTRIgine 100 MG TAB PO SCH (15:14)
[2020-01-23] MEDS: amLODIPine BESYLATE 5 MG TAB PO SCH (15:15)
[2020-01-23] MEDS: MYCOPHENOLATE 500 MG TAB PO SCH (15:16)
[2020-01-23] MEDS: ATENOLOL 50 MG TAB PO SCH (15:16)
[2020-01-23] MEDS: hydrALAZINE HCL 25 MG TAB PO SCH (15:17)
--- NOTE | 2020-01-23 15:55 | NUR ---
CALLED DR. RICH CALLED RECEIVED ORDER TO DISCONTINUE HOPKINS CATHETER AND DISCHARGE PLAN FOR TODAY
--- NOTE | 2020-01-23 16:00 | NUR ---
PATENT CLAIMED EYE GLASSES AND EAR RINGS WAS LEFT IN E.R. LAST NIGHT
--- NOTE | 2020-01-23 16:08 | NUR ---
CALLED ER TO FIND OUT IF THERE IS EYE GLASSES ND EARRING LEFT FROM THIS PATIENT,,SPOKE TO ER STAFF NO GLASSES OR EARRINGS IN THE LOST AND FOUND
[2020-01-23] MEDS ORDERED: DOXY-340 PO (16:10)
[2020-01-23] MEDS ORDERED: AMOX500T86 PO (16:12)
[2020-01-23] MEDS ORDERED: CEPH-37 PO (16:15)
--- NOTE | 2020-01-23 16:23 | NUR ---
CALLED AND SPOKE TO DR. RICH RE DISCHARGE AND PENDING BLOOD CULTURE, PER MD INSTRUCTION TO DRAW BLOOD CULTURE THEN DISCHARGE PATIENT,RESULT WILL BE SENT TO [facility] AND PATIENT CAN FOLLOW UP RESULT FROM THERE.
--- NOTE | 2020-01-23 16:35 | NUR ---
CALLED AND SPOKE TO CASSIUS (PATIENT AFTER OBTAINING PASSWORD) INFORMED OF DISCHARGE,STATED AWARE AND SPOKE TO MD ALREADY,INFORMED WILL DISCONTINUE H[facility]KINS AND TO MAKE SURE PATIENT VOIDS PRIOR TO DISCHARGE,INFORMED UN ABLE TO LOCATE OR FIND HER GLASSES AND EARRINGS,PER WAS ABLE TO FIND IT WAS LEFT AT HOME.
--- NOTE | 2020-01-23 16:40 | NUR ---
HOPKINS CATHETER DISCONTINUED
--- NOTE | 2020-01-23 16:42 | NUR ---
1615 01/23/20 - Contacted [facility] at [phone] requesting authorization for continued inpatient stay. Spoke with insurance compliance analyst Santa who stated authorization pending clinical review.
[2020-01-23 17:00] VITALS: BP 115/72
[2020-01-23] MEDS ORDERED: NORTRIPTYLINE HCL 25 MG CAP PO SCH (18:00)
[2020-01-23 18:03] VITALS: BP 115/76
--- NOTE | 2020-01-23 18:29 | NUR ---
BLOOD CULTURE TAKEN BY SUPERVISOR ROD PLACING
--- NOTE | 2020-01-23 18:40 | NUR ---
Discharge instructions given as ordered. Encourage to follow up with PMD at [facility] and follow up Blood Culture result, as instructed. All questions and concerns addressed. Patient verbalized understanding. Medication reconciliation form completed and copy given to patient. IV removed with catheter intact, pressure dressing applied, Telemetry unit returned to ICU.patient stated had not voided yet,stated "I do'nt and I seldom urinate so it will be a while for me to go pee." patient very anxious to go home.
--- NOTE | 2020-01-23 19:10 | NUR ---
Patient taken to vehicle via wheelchair with all personal belongings, accompanied by staff and met by family member at the front lobby, No distress noted at time of departure.
[2020-01-23] MEDS ORDERED: EPOETIN ALFA 4,000 UNIT/ML VL SC ONE (21:00)
[2020-01-23] MEDS ORDERED: ENOXAPARIN SOD 100 MG/1 ML SYRINGE SC SCH (22:00)
== END 2020-01-23 19:10 | disposition home or self-care (01) | DRG 52 ==
LOC: EDBD 13:31 → ER 13:31 → TELE 13:32 → TELE-WESTW 01-23 03:30
PROVIDERS: ADMIT Internal Medicine; ATTEND Internal Medicine Nephrology
PROC: 5A1D70Z Performance of Urinary Filtration, Intermittent, Less than 6 Hours Per Day (ICD-10-PCS; principal; 2020-01-23)
DX: G93.41 Metabolic encephalopathy (principal); J15.6 Pneumonia due to other Gram-negative bacteria; N18.6 End stage renal disease; Z99.2 Dependence on renal dialysis; I50.9 Heart failure, unspecified; E66.01 Morbid (severe) obesity due to excess calories; Z68.37 Body mass index [BMI] 37.0-37.9, adult; Z88.8 Allergy status to other drugs, medicaments and biological substances; I13.2 Hypertensive heart and chronic kidney disease with heart failure and with stage 5 chronic kidney disease, or end stage renal disease; I48.91 Unspecified atrial fibrillation; E89.0 Postprocedural hypothyroidism; Z82.49 Family history of ischemic heart disease and other diseases of the circulatory system; Z87.11 Personal history of peptic ulcer disease; Z96.653 Presence of artificial knee joint, bilateral; E11.22 Type 2 diabetes mellitus with diabetic chronic kidney disease; D63.1 Anemia in chronic kidney disease; Z20.828 Contact with and (suspected) exposure to other viral communicable diseases; J12.9 Viral pneumonia, unspecified
CPT/HCPCS: 36415; 70450; 71045; 80053; 80307; 80320; 81001; 82306; 82550; 82728; 83615; 83735; 83880; 83970; 84100; 84443; 84484; 85025; 85379; 85652; 86141; 87040; 90935; 93005; 96361; 96374; 99291; G0378; J0696; J7517

== ENCOUNTER 2022-03-28 17:03 | Emergency (ER) | payer OTHER, MEDICAID ==
[~2022-03-28] VITALS: Ht 167.6 cm; Wt 91.3 kg
[~2022-03-28 17:03] MED LIST changes: +AMLO-489 PO; -AMLO5TAB15 PO; +AMOX500T86 PO; +CEPH-37 PO; +DOXY-340 PO; -HCTZ25T GT; +HYDR25TA5 GT
[2022-03-28 17:40] LABS: Hematocrit 36.1 % (36.0-46.0); Hemoglobin 11.5 g/dL (12.2-16.2); Mean Corpuscular Hemoglobin 26.4 pg (28.0-32.0); Mean Corpuscular Hgb Conc. 31.7 g/dL (32.0-36.0); Mean Corpuscular Volume 83.3 fL (80.0-100.0); Red Blood Cells 4.34 10^6/uL (4.0-5.20); Red Cell Distribution Width 16.4 % (11.8-14.3)
[2022-03-28 17:54] LABS: Band Neutrophils % (manual) 0; Basophils % (manual) 0 (0.0-2.0); Metamyelocytes % 0; Myelocytes % 0; Promyelocytes % 0
[2022-03-28 17:59] LABS: Blast Cells 1; Eosinophils % (manual) 1 (0-7); Lymphocytes % (manual) 35 (10.0-50.0); Monocytes % (manual) 6 (0-12); Reactive Lymphocytes 5
[2022-03-28 18:18] LABS: Chloride 98 mmol/L (98-107); Potassium 3.7 mmol/L (3.5-5.1); Sodium 137 mmol/L (136-145)
[2022-03-28 18:19] LABS: Alanine Aminotransferase 14 U/L (13-56); Albumin 3.6 g/dL (3.4-5.0); Alkaline Phosphatase 117 U/L (45-117); Anion Gap 13 (5-15); Aspartate Aminotransferase 9 U/L (15-37); BUN/Creatinine Ratio 5.3; Bilirubin, Total 0.3 mg/dL (0.2-1.0); Blood Urea Nitrogen 38 mg/dL (7-18); Calcium 9.5 mg/dL (8.5-10.1); Carbon Dioxide 26 mmol/L (21-32); GFR African American 7 mL/min; GFR Non-African American 6 mL/min; Glucose 118 mg/dL (74-106)
[2022-03-28 18:20] LABS: Magnesium 2.5 mg/dL (1.6-2.6)
[2022-03-28 18:31] LABS: INR 1.09 (0.9-1.15); Partial Thromboplastin Time 24.3 sec (24.6-33.4)
[2022-03-28] MEDS ORDERED: ASPirin 81 mg TAB PO ONE (21:00)
[2022-03-29] MEDS ORDERED: dilTIAZem 25 MG/5 ML VIAL IV ONE (01:00)
[2022-03-29] MEDS ORDERED: dilTIAZem HCL 60 MG TAB PO ONE (01:15)
[2022-03-29 02:06] VITALS: BP 149/83
== END 2022-03-29 02:22 | disposition hospice, inpatient (51) ==
LOC: ER 17:06
DX: R00.2 Palpitations (principal); R77.8 Other specified abnormalities of plasma proteins; I13.0 Hypertensive heart and chronic kidney disease with heart failure and stage 1 through stage 4 chronic kidney disease, or unspecified chronic kidney disease; N18.9 Chronic kidney disease, unspecified; I50.9 Heart failure, unspecified; I48.91 Unspecified atrial fibrillation; E03.9 Hypothyroidism, unspecified; Z90.49 Acquired absence of other specified parts of digestive tract; Z90.89 Acquired absence of other organs; Z79.899 Other long term (current) drug therapy; Z88.8 Allergy status to other drugs, medicaments and biological substances; Z20.822 Contact with and (suspected) exposure to COVID-19
CPT/HCPCS: 36415; 71046; 80053; 83735; 83880; 84484; 85007; 85027; 85610; 85730; 93005